=== PATIENT | male | born 1970 | race Caucasian/White ===

== ENCOUNTER → 2017-03-01 | Outpatient (CLI) | payer OTHER ==
--- NOTE | 2017-03-01 13:06 | REP ---
Clinical: Pain. Technique: AP, lateral, bilateral oblique and sunrise views of the left knee. Findings: Evidence for prior open reduction and fixation with intramedullary jared through the visualized tibia. Mild tricompartmental degenerative changes include increased sclerosis to the tibial plateau with subtle spurring to the tibial spines and early marginal spurring. Anterolateral spurring along the patellar margin are also appreciated along with minimally decreased patellofemoral joint space. No acute fracture dislocation. No effusion. Impression: Mild tricompartmental degenerative changes. Signed by Patel Strange MD 03/01/2017 12:57 P
== END ==
LOC: M RAD 12:33
PROVIDERS: ATTEND Nurse Practitioner Family
DX: M17.12 Unilateral primary osteoarthritis, left knee (principal)